=== PATIENT | female | born 1945 | race American Indian/Alaskan Native ===

== ENCOUNTER 2017-02-04 10:16 | Outpatient (CLI) | payer MEDICARE ==
--- NOTE | 2017-02-04 15:50 | Mammography Report ---
BILATERAL DIGITAL SCREENING MAMMOGRAM with CAD: 02/04/17 10:16:00 CLINICAL: Routine screening. COMPARISON: 02/02/16 FINDINGS: Bilateral heterogeneously dense retroareolar fibroglandular densities.No mass, architectural distortion or suspicious calcifications. IMPRESSION: No mammographic evidence of malignancy. BI-RADS CATEGORY: 1 -- Negative RECOMMENDATION: Routine mammographic screening in one year. COMMENT: Patient follow-up letters are generated by our [employer] application.
== END 2017-02-04 10:17 | disposition home or self-care (01) ==
LOC: MAMMO 10:16
PROVIDERS: ATTEND Obstetrics & Gynecology Gynecology
DX: Z12.31 Encounter for screening mammogram for malignant neoplasm of breast (principal)
CPT/HCPCS: 77067; G0202

== ENCOUNTER 2017-03-06 08:18 | Day surgery (SDC) | payer MEDICARE ==
[~2017-03-06 08:18] MED LIST: TETRACAINE 0.5% OD PRN
[2017-03-06] MEDS ORDERED: WATER FOR IRRIG STERILE IR ONE (10:05)
[2017-03-06] MEDS: MYDRIACYL OD SCH ×3 (10:09→10:26)
[2017-03-06] MEDS: AK-Dilate OD SCH ×3 (10:10→10:26)
[2017-03-06] MEDS: VIGAMOX OD SCH ×3 (10:10→10:27)
--- NOTE | 2017-03-06 10:21 | Anesthesia Consultation ---
Anesthesia Consult and Med Hx Date of service: 03/06/17 - Airway Anesthetic Teeth Evaluation: Good, Chipped (top left molar), Partials (top) ROM Head & Neck: Adequate Mental/Hyoid Distance: Adequate Mallampati Class: Class II Intubation Access Assessment: Probably Good - Pulmonary Exam CTA: Yes - Cardiac Exam Cardiac Exam: RRR - Pre-Operative Health Status ASA Pre-Surgery Classification: ASA3 Proposed Anesthetic Plan: MAC - Pulmonary Hx Smoking: Yes (former, quit in 2011) Hx Respiratory Symptoms: Yes (allergic rhinits, sinusitis) COPD: No Hx Sleep Apnea: No - Cardiovascular System Hx Hypertension: Yes Hx Coronary Artery Disease: No Hx Heart Murmur: Yes - Central Nervous System Hx Seizures: No CVA: No Hx Back Pain: Yes Hx Psychiatric Problems: Yes - Gastrointestinal Hx Gastroesophageal Reflux Disease: Yes - Endocrine Hx Renal Disease: No Hx Liver Disease: No Hx Non-Insulin Dependent Diabetes: No Hx Thyroid Disease: Yes Hx Hypothyroidism: Yes - Other Systems Hx Alcohol Use: Yes (occas) Hx Cancer: No
--- NOTE | 2017-03-06 10:22 | Anesthesia Day of Surgery ---
Anesthesia Day of Surgery - Day of Surgery Patient Examined: Yes Patient H&P Reviewed: Yes Patient is NPO: Yes Beta Blockers: Yes (last night)
[2017-03-06] MEDS ORDERED: VERSED ONE (11:00)
[2017-03-06] MEDS ORDERED: SUBLIMAZE ONE (11:00)
--- NOTE | 2017-03-06 11:47 | Operative Report ---
Operative Report Operative Report: PATIENT'S NAME: DATE OF : DATE OF SURGERY: 03/06/2017 PREOPERATIVE DIAGNOSIS: Cataract right eye POSTOPERATIVE DIAGNOSIS: Same OPERATIVE PROCEDURE: Phacoemulsification with intraocular lens implantation, right eye SURGEON: Catalina Juarez M.D. FLIGHT SIMULATOR TEACHER SURGEON: Rocio Lens: AO60 10.0 D ANESTHESIA: Monitored anesthesia care in combination with topical and intracameral anesthesia because of the established specific risk of reflux, arrhythmias, or anxiety attacks associated with ocular manipulation, as well as the difficulty of the ornamental metal worker helper to manage such potentially catastrophic events while simultaneously attempting to complete the surgical procedure and was deemed necessary for the patient's safety to have an Inspector Automatic Typewriter present during the procedure whenever possible. An Inspector Automatic Typewriter was utilized to regulate the intravenous sedation of the patient so the patient was cooperative yet not asleep in order for the patient to successfully maintain fixation of the eye on the operating light of the microscope. COMPLICATIONS: No surgical complications No blood loss. ALLERGIES: Bacitracin latex rubber neomycin PROGNOSIS: Excellent INDICATIONS FOR SURGERY: The patient is undergoing surgery in the hopes of eliminating or improving these visual difficulties. PROCEDURE: After arriving at the surgery center, the patient was given topical anesthetic and dilating drops, as noted in the record. The patient was then taken into the operating room and given more anesthetic drops. The eyelids , lashes, and lid margins were scrubbed with Betadine solution, and the patient was draped. The Nurse Inspector Automatic Typewriter administered IV sedation and monitored the patient during the procedure. The eye was then fixated with a 0.12, and a stab incision was made in the peripheral clear cornea into the anterior chamber. This was made on my left side. Viscoelastic was next used to fill the anterior chamber. The eye was once again fixated with the 0.12 forceps and a keratome was used make an incision in clear cornea peripherally on my right hand side temporally. The capsule forceps were used to open the central anterior capsule and then make a continuous round capsulotomy. Hydrodissection was carried out utilizing a cannula and balanced salt solution to delineate the cortical material from the capsule and the nucleus from the cortical material. The phaco tip was introduced into the eye and used to remove the anterior cortical material in the area of the capsulotomy. Then the phaco tip was buried into the nucleus, and a chopping instrument was introduced into the eye and used to provide countertraction in the nucleus between this instrument and the phaco tip fracturing the nucleus. This procedure was repeated multiple times, providing multiple small segments of the lens, and then the phaco tip was used to remove each of these segments. An I/A tip was then used to remove the remaining cortex. The anterior chamber was refilled with viscoelastic. An one-piece, acrylic intraocular lens was then placed into an inserting cartridge. The tip of the inserting cartridge was introduced into the keratome incision and into the anterior chamber. The implant was gently advanced through the cartridge and into the eye, where it unfolded, and both haptics were placed in the capsular bag, where it centered nicely and appeared to be well fixated. After placement of the intraocular lens, the I~and~A handpiece was placed back into the eye and used to remove the viscoelastic, including viscoelastic that was behind the optic of the intraocular lens. The anterior chamber was then filled with balanced salt solution, and hydration of the wound was used to cause swelling of the wound and more appropriate watertight closure. When the wound was found to be firm, the patient was asked to comment on how bright the light was. If there was no light perception at all or if the light was substantially dimmer than during the rest of the surgery, the amount of fluid in the eye was decompressed to lower the intraocular pressure until the patient could see the bright light again. This was done to avoid any damage or decreased blood flow to the optic nerve. MEDICATIONS APPLIED AT END OF SURGERY: One drop of Pred Forte and Vigamox The patient was given a shield to wear at night and was instructed not to rub or push on the eye. DISCHARGE SUMMARY: The patient was released in stable condition. The patient and those with the patient were given a written sheet of postoperative instructions and counseling on any abnormal laboratory studies. The patient is to see us tomorrow for follow-up in the office and is to call immediately for any difficulties. Catalina Juarez M.D. Date
--- NOTE | 2017-03-06 11:48 | Short Stay Summary ---
Short Stay Documentation Date of service: 03/06/17 - History H&P: obtained from office - Allergies and Medications Current Medications: Allergies bacitracin zinc [From Neosporin + Pain Relief] Allergy (Verified 03/05/17 11:14) Rash Latex, Natural Rubber Allergy (Verified 03/05/17 11:14) Rash neomycin sulfate [From Neosporin + Pain Relief] Allergy (Verified 03/05/17 11:14 ) Rash polymyxin B sulfate [From Neosporin + Pain Relief] Allergy (Verified 03/05/17 11 :14) Rash pramoxine [From Neosporin + Pain Relief] Allergy (Verified 03/05/17 11:14) Rash pramoxine HCl [From Neosporin + Pain Relief] Allergy (Verified 03/05/17 11:14) Rash amoxicillin trihydrate [From Augmentin] Adverse Reaction (Verified 03/06/17 10: 55) Nausea cephalexin monohydrate [From Keflex] Adverse Reaction (Verified 03/06/17 10:55) Nausea erythromycin base Adverse Reaction (Verified 03/06/17 10:55) Nausea potassium clavulanate [From Augmentin] Adverse Reaction (Verified 03/06/17 10:55 ) Nausea silk tape Allergy (Uncoded 03/05/17 11:14) Rash Home Medications Medication Instructions Recorded Confirmed Last Taken Type Amlodipine Besylate [Amlodipine 5 mg PO DAILY 03/05/17 03/06/17 03/06/17 07:30 History Besylate] Chlorthalidone [Chlorthalidone] 12.5 mg PO DAILY 03/05/17 03/06/17 03/05/17 16: 00 History Esomeprazole Magnesium [NexIUM] 40 mg PO DAILY 03/05/17 03/06/17 03/06/17 07:30 History Levothyroxine Tab [Synthroid Tab] 1 tab PO DAILY 03/05/17 03/06/17 03/06/17 07: 30 History Losartan [Cozaar] 25 mg PO QDAY 03/05/17 03/06/17 03/05/17 22:30 History Metoprolol [Lopressor] 25 mg PO DAILY 03/05/17 03/06/17 03/05/17 22:30 History Montelukast [Singulair] 10 mg PO QPM 03/05/17 03/06/17 03/05/17 22:30 History Rosuvastatin (Nf) [Crestor] 20 mg PO QHS 03/05/17 03/06/17 03/05/17 22:30 History Tamsulosin [Flomax] 0.4 mg PO QDAY 03/05/17 03/06/17 03/05/17 23:00 History guaiFENesin [Mucinex] 600 mg PO PRN PRN 03/05/17 03/06/17 03/05/17 16:00 History Active Medications Moxifloxacin HCl (Vigamox) 1 drops OD Q5MIN CORINA Stop: 03/08/17 06:01 Last Admin: 03/06/17 10:27 Dose: 1 drops Phenylephrine HCl (Ak-Dilate) 1 drops OD Q5MIN CORINA Stop: 03/08/17 06:01 Last Admin: 03/06/17 10:26 Dose: 1 drops Prednisolone Acetate (Pred Forte 1%) 1 drops OD QID CORINA Tetracaine HCl (Tetracaine 0.5%) 1 drops OD Q5M PRN PRN Reason: Analgesia Last Admin: 03/06/17 10:09 Dose: 1 drops Tropicamide (Mydriacyl) 1 drops OD Q5MIN CORINA Stop: 03/08/17 06:01 Last Admin: 03/06/17 10:26 Dose: 1 drops - Brief post op/procedure progress note Date of procedure: 03/06/17 Pre-op diagnosis: cataract right eye Post-op diagnosis: same Procedure: Phacoemulsification with intraocular lens insertion right eye Anesthesia: MAC Surgeon: YONG RAMEY Estimated blood loss: none Pathology: none Condition: stable - Disposition Condition at discharge: Good Disposition: DISCHARGED TO HOME OR SELFCARE - Discharge Diagnoses (1) Cataract Status: Resolved Short Stay Discharge Plan Follow up with: VELASQUEZ HUNT MD [Primary Care Provider] - 7 Days
[2017-03-06 12:31] VITALS: BP 120/67
--- NOTE | 2017-03-06 13:19 | Post Anesthesia Evaluation ---
- Post Anesthesia Evaluation Patient Participated: Yes Airway Patent: Yes Stable Respiratory Function: Yes Nausea/Vomiting: No Temp > 96.8F: Yes Pain Manageable: Yes Adequeate Hydration: Yes Anesthesia Complications: No Block Receding Appropriately: Not Applicable Patient on Ventilator: No
[2017-03-06] MEDS ORDERED: PRED FORTE 1% OD SCH (14:00)
== END 2017-03-06 12:35 | disposition home or self-care (01) ==
LOC: OR 08:18
DX: H26.9 Unspecified cataract (principal); I10 Essential (primary) hypertension; K21.9 Gastro-esophageal reflux disease without esophagitis; E03.9 Hypothyroidism, unspecified; Z72.89 Other problems related to lifestyle; Z87.891 Personal history of nicotine dependence
CPT/HCPCS: 66984; J2250; J3010; V2632

== ENCOUNTER 2017-03-20 09:08 | Day surgery (SDC) | payer MEDICARE ==
[~2017-03-20 09:08] MED LIST changes: -TETRACAINE 0.5% OD PRN; +TETRACAINE 0.5% OS PRN
[2017-03-20] MEDS: VIGAMOX OS SCH ×3 (10:35→10:45)
[2017-03-20] MEDS: AK-Dilate OS SCH ×3 (10:35→10:45)
[2017-03-20] MEDS: MYDRIACYL OS SCH ×3 (10:35→10:45)
--- NOTE | 2017-03-20 11:16 | Anesthesia Consultation ---
Anesthesia Consult and Med Hx Date of service: 03/20/17 - Airway Anesthetic Teeth Evaluation: Chipped ROM Head & Neck: Adequate Mental/Hyoid Distance: Adequate Mallampati Class: Class II Intubation Access Assessment: Probably Good - Pulmonary Exam CTA: Yes - Cardiac Exam Cardiac Exam: RRR - Pre-Operative Health Status ASA Pre-Surgery Classification: ASA3 Proposed Anesthetic Plan: MAC - Pulmonary Hx Smoking: Yes (former) Hx Respiratory Symptoms: Yes (allergic rhinits, sinusitis) COPD: No Hx Sleep Apnea: No - Cardiovascular System Hx Hypertension: Yes Hx Coronary Artery Disease: No Hx Heart Murmur: Yes - Central Nervous System Hx Seizures: No CVA: No Hx Back Pain: Yes Hx Psychiatric Problems: Yes - Gastrointestinal Hx Gastroesophageal Reflux Disease: Yes - Endocrine Hx Renal Disease: No Hx Liver Disease: No Hx Non-Insulin Dependent Diabetes: No Hx Thyroid Disease: Yes Hx Hypothyroidism: Yes - Other Systems Hx Alcohol Use: Yes (occas) Hx Cancer: No
--- NOTE | 2017-03-20 11:17 | Anesthesia Day of Surgery ---
Anesthesia Day of Surgery - Day of Surgery Patient Examined: Yes Patient H&P Reviewed: Yes Patient is NPO: Yes Beta Blockers: Yes
[2017-03-20] MEDS ORDERED: SUBLIMAZE ONE (11:40)
[2017-03-20] MEDS ORDERED: VERSED ONE (11:41)
--- NOTE | 2017-03-20 12:02 | Operative Report ---
Operative Report Operative Report: PATIENT'S NAME: DATE OF : DATE OF SURGERY: 03/20/2017 PREOPERATIVE DIAGNOSIS: Cataract left eye POSTOPERATIVE DIAGNOSIS: Same OPERATIVE PROCEDURE: Phacoemulsification with intraocular lens implantation, left eye SURGEON: Catalina Juarez M.D. PIGMENT AND LACQUER MIXER SURGEON: Rocio Lens: ao60 9.0 D ANESTHESIA: Monitored anesthesia care in combination with topical and intracameral anesthesia because of the established specific risk of reflux, arrhythmias, or anxiety attacks associated with ocular manipulation, as well as the difficulty of the bulb farmworker to manage such potentially catastrophic events while simultaneously attempting to complete the surgical procedure and was deemed necessary for the patient's safety to have an Timber Incisor Operator present during the procedure whenever possible. An Timber Incisor Operator was utilized to regulate the intravenous sedation of the patient so the patient was cooperative yet not asleep in order for the patient to successfully maintain fixation of the eye on the operating light of the microscope. COMPLICATIONS: No surgical complications No blood loss. ALLERGIES: Bacitracin latex neomycin PROGNOSIS: Excellent INDICATIONS FOR SURGERY: The patient is undergoing surgery in the hopes of eliminating or improving these visual difficulties. PROCEDURE: After arriving at the surgery center, the patient was given topical anesthetic and dilating drops, as noted in the record. The patient was then taken into the operating room and given more anesthetic drops. The eyelids , lashes, and lid margins were scrubbed with Betadine solution, and the patient was draped. The Nurse Timber Incisor Operator administered IV sedation and monitored the patient during the procedure. The eye was then fixated with a 0.12, and a stab incision was made in the peripheral clear cornea into the anterior chamber. This was made on my left side. Viscoelastic was next used to fill the anterior chamber. The eye was once again fixated with the 0.12 forceps and a keratome was used make an incision in clear cornea peripherally on my right hand side temporally. The capsule forceps were used to open the central anterior capsule and then make a continuous round capsulotomy. Hydrodissection was carried out utilizing a cannula and balanced salt solution to delineate the cortical material from the capsule and the nucleus from the cortical material. The phaco tip was introduced into the eye and used to remove the anterior cortical material in the area of the capsulotomy. Then the phaco tip was buried into the nucleus, and a chopping instrument was introduced into the eye and used to provide countertraction in the nucleus between this instrument and the phaco tip fracturing the nucleus. This procedure was repeated multiple times, providing multiple small segments of the lens, and then the phaco tip was used to remove each of these segments. An I/A tip was then used to remove the remaining cortex. The anterior chamber was refilled with viscoelastic. An one-piece, acrylic intraocular lens was then placed into an inserting cartridge. The tip of the inserting cartridge was introduced into the keratome incision and into the anterior chamber. The implant was gently advanced through the cartridge and into the eye, where it unfolded, and both haptics were placed in the capsular bag, where it centered nicely and appeared to be well fixated. After placement of the intraocular lens, the I~and~A handpiece was placed back into the eye and used to remove the viscoelastic, including viscoelastic that was behind the optic of the intraocular lens. The anterior chamber was then filled with balanced salt solution, and hydration of the wound was used to cause swelling of the wound and more appropriate watertight closure. When the wound was found to be firm, the patient was asked to comment on how bright the light was. If there was no light perception at all or if the light was substantially dimmer than during the rest of the surgery, the amount of fluid in the eye was decompressed to lower the intraocular pressure until the patient could see the bright light again. This was done to avoid any damage or decreased blood flow to the optic nerve. MEDICATIONS APPLIED AT END OF SURGERY: One drop of Pred Forte and Vigamox The patient was given a shield to wear at night and was instructed not to rub or push on the eye. DISCHARGE SUMMARY: The patient was released in stable condition. The patient and those with the patient were given a written sheet of postoperative instructions and counseling on any abnormal laboratory studies. The patient is to see us tomorrow for follow-up in the office and is to call immediately for any difficulties. Catalina Juarez M.D. Date
--- NOTE | 2017-03-20 12:03 | Short Stay Summary ---
Short Stay Documentation Date of service: 03/20/17 - History H&P: obtained from office - Allergies and Medications Current Medications: Allergies bacitracin zinc [From Neosporin + Pain Relief] Allergy (Verified 03/14/17 15:18) Rash Latex, Natural Rubber Allergy (Verified 03/14/17 15:18) Rash neomycin sulfate [From Neosporin + Pain Relief] Allergy (Verified 03/14/17 15:18 ) Rash polymyxin B sulfate [From Neosporin + Pain Relief] Allergy (Verified 03/14/17 15 :18) Rash pramoxine [From Neosporin + Pain Relief] Allergy (Verified 03/14/17 15:18) Rash pramoxine HCl [From Neosporin + Pain Relief] Allergy (Verified 03/14/17 15:18) Rash adhesive Adverse Reaction (Verified 03/20/17 10:32) Unknown CAUSES SKIN IRRITATION. PAPER TAPE IS OK TO USE. amoxicillin trihydrate [From Augmentin] Adverse Reaction (Verified 03/20/17 10: 32) Nausea STATES NO ALLERGY TO PENICILLIN, ONLY TO AUGMENTIN cephalexin monohydrate [From Keflex] Adverse Reaction (Verified 03/14/17 15:18) Nausea erythromycin base Adverse Reaction (Verified 03/14/17 15:18) Nausea potassium clavulanate [From Augmentin] Adverse Reaction (Verified 03/14/17 15:18 ) Nausea silk tape Allergy (Uncoded 03/05/17 11:14) Rash Home Medications Medication Instructions Recorded Confirmed Last Taken Type Amlodipine Besylate [Amlodipine 5 mg PO DAILY 03/05/17 03/14/17 03/06/17 07:30 History Besylate] Chlorthalidone [Chlorthalidone] 12.5 mg PO DAILY 03/05/17 03/14/17 03/05/17 16: 00 History Esomeprazole Magnesium [NexIUM] 40 mg PO DAILY 03/05/17 03/14/17 03/06/17 07:30 History Levothyroxine Tab [Synthroid Tab] 1 tab PO DAILY 03/05/17 03/14/17 03/06/17 07: 30 History Losartan [Cozaar] 25 mg PO QDAY 03/05/17 03/20/17 03/19/17 22:30 History Metoprolol [Lopressor] 25 mg PO DAILY 03/05/17 03/20/17 03/19/17 22:30 History Montelukast [Singulair] 10 mg PO QPM 03/05/17 03/20/17 03/19/17 History Rosuvastatin (Nf) [Crestor] 20 mg PO QHS 03/05/17 03/20/17 03/19/17 History Tamsulosin [Flomax] 0.4 mg PO QDAY 03/05/17 03/20/17 03/19/17 History guaiFENesin [Mucinex] 600 mg PO PRN PRN 03/05/17 03/20/17 03/19/17 History methylPREDNISolone [Medrol Dose 4 mg PO DAILY 03/14/17 03/20/17 03/18/17 History Shahab] Amlodipine Besylate [Amlodipine 5 mg PO QDAY 03/20/17 03/20/17 03/20/17 08:30 History Besylate] Esomeprazole Magnesium [NexIUM] 40 mg PO QDAY 03/20/17 03/20/17 03/20/17 08:00 History Levothyroxine Tab [Synthroid Tab] 88 mcg PO QDAY 03/20/17 03/20/17 03/20/17 07: 25 History Sulfamethoxazole/Trimethoprim 1 each PO BID 03/20/17 03/20/17 03/19/17 23:30 History [Bactrim DS TAB] Active Medications Moxifloxacin HCl (Vigamox) 1 drops OS Q5MIN CORINA Stop: 03/20/17 23:59 Last Admin: 03/20/17 10:45 Dose: 1 drops Phenylephrine HCl (Ak-Dilate) 1 drops OS Q5MIN CORINA Stop: 03/20/17 23:59 Last Admin: 03/20/17 10:45 Dose: 1 drops Prednisolone Acetate (Pred Forte 1%) 1 drops OS QID CORINA Tetracaine HCl (Tetracaine 0.5%) 1 drops OS Q5M PRN PRN Reason: Analgesia Stop: 03/20/17 23:59 Last Admin: 03/20/17 10:35 Dose: 1 drops Tropicamide (Mydriacyl) 1 drops OS Q5MIN CORINA Stop: 03/20/17 23:59 Last Admin: 03/20/17 10:45 Dose: 1 drops - Brief post op/procedure progress note Date of procedure: 03/20/17 Pre-op diagnosis: left cataract Post-op diagnosis: same Procedure: Phacoemulsification with intraocular lens insertion left eye Anesthesia: MAC Surgeon: YONG RAMEY Estimated blood loss: none Pathology: none Condition: stable - Disposition Condition at discharge: Good Disposition: DISCHARGED TO HOME OR SELFCARE - Discharge Diagnoses (1) Cataract Status: Resolved Qualifiers: Cataract type: age-related Age-related cataract type: nuclear Infantile/ juvenile cataract type: I Traumatic cataract type: T Complicated cataract type: C Secondary cataract type: S Laterality: left Qualified Code(s): H25.12 - Age-related nuclear cataract, left eye Short Stay Discharge Plan Follow up with: VELASQUEZ HUNT MD [Primary Care Provider] - 7 Days
[2017-03-20] MEDS ORDERED: PRED FORTE 1% OS SCH (14:00)
[2017-03-20 14:35] VITALS: BP 96/50
== END 2017-03-20 13:03 | disposition home or self-care (01) ==
LOC: OR 09:08
DX: H26.9 Unspecified cataract (principal); M19.90 Unspecified osteoarthritis, unspecified site; I10 Essential (primary) hypertension; K21.9 Gastro-esophageal reflux disease without esophagitis; E03.9 Hypothyroidism, unspecified; Z72.89 Other problems related to lifestyle; Z87.891 Personal history of nicotine dependence
CPT/HCPCS: 66984; J2250; J3010; V2632

== ENCOUNTER 2018-02-04 10:55 | Outpatient (CLI) | payer MEDICARE ==
--- NOTE | 2018-02-04 16:31 | Mammography Report ---
BILATERAL DIGITAL SCREENING MAMMOGRAM with CAD: 02/04/18 10:55:00 CLINICAL: Routine screening. COMPARISON:02/04/17 FINDINGS: The breasts are heterogeneously dense, which may obscure small masses. No mass, architectural distortion or suspicious calcifications. IMPRESSION: No mammographic evidence of malignancy. BI-RADS CATEGORY: 1 - - Negative RECOMMENDATION: Routine mammographic screening in one year. COMMENT: Patient follow-up letters are generated by our [employer] application.
== END 2018-02-04 10:56 | disposition home or self-care (01) ==
LOC: MAMMO 10:55
PROVIDERS: ATTEND Obstetrics & Gynecology Gynecology
DX: Z12.31 Encounter for screening mammogram for malignant neoplasm of breast (principal)
CPT/HCPCS: 77067

== ENCOUNTER 2019-02-05 11:11 | Outpatient (CLI) | payer MEDICARE ==
--- NOTE | 2019-02-05 14:34 | Mammography Report ---
BILATERAL DIGITAL SCREENING MAMMOGRAM with CAD: 02/05/19 11:11:00 CLINICAL: Routine screening. COMPARISON:02/04/18 FINDINGS: The breasts are heterogeneously dense, which may obscure small masses. No mass, architectural distortion or suspicious calcifications. IMPRESSION: No mammographic evidence of malignancy. BI-RADS CATEGORY: 1 - - Negative RECOMMENDATION: Routine mammographic screening in one year. COMMENT: Patient follow-up letters are generated by our [employer] application.
== END 2019-02-05 11:12 | disposition home or self-care (01) ==
LOC: MAMMO 11:11
PROVIDERS: ATTEND Obstetrics & Gynecology Gynecology
DX: Z12.31 Encounter for screening mammogram for malignant neoplasm of breast (principal); E78.00 Pure hypercholesterolemia, unspecified; I10 Essential (primary) hypertension; K21.9 Gastro-esophageal reflux disease without esophagitis; E03.9 Hypothyroidism, unspecified; Z87.891 Personal history of nicotine dependence
CPT/HCPCS: 77067

== ENCOUNTER 2020-05-08 10:47 | Outpatient (CLI) | payer MEDICARE ==
--- NOTE | 2020-05-09 08:16 | Mammography Report ---
DIGITAL SCREENING MAMMOGRAM WITH CAD, 05/08/2020 INDICATION: Routine screening mammography. TECHNIQUE: Digital bilateral 2D mammography was obtained in the craniocaudal and mediolateral obliq ue projections. This examination was interpreted with the benefit of Computer-Aided Detection analysi s. COMPARISON: 02/05/2019 FINDINGS: Breast Density: There are scattered areas of fibroglandular density. There is no evidence of dominant mass, suspicious calcifications or architectural distortion in eithe r breast. IMPRESSION: Follow up recommendation: Routine yearly BI-RADS Category 1: Negative. A "normal" or negative report should not discourage follow up or biopsy of a clinically significant f inding. A written summary of these findings will be mailed to the patient. The patient will be entered into a mammography reporting system which will generate a reminder letter for the patient's next appointmen t at the appropriate interval. [employer] recommends yearly mammograms starting at age 40 and continuing as l ernesto as a woman is in good health. Breast MRI is recommended for women with an approximate 20-25% or greater lifetime risk of breast cancer, including women with a strong family history of breast or ova adeel cancer or who have been treated for Hodgkin's disease. Signer Name: Segundo Islas MD Signed: 05/09/2020 8:12 AM Workstation Name: [id number]
== END 2020-05-08 10:48 | disposition home or self-care (01) ==
LOC: MAMMO 10:47
PROVIDERS: ATTEND Obstetrics & Gynecology Gynecology
DX: Z12.31 Encounter for screening mammogram for malignant neoplasm of breast (principal); N64.89 Other specified disorders of breast
CPT/HCPCS: 77067